=== PATIENT | female | born 1950 | race Caucasian/White ===

== ENCOUNTER → 2018-04-13 | Outpatient (CLI) | payer MEDICARE, OTHER ==
[~2018-04-13] MED LIST: BUSPIRONE HCL5 MG PO; CITALOPRAM HBR20 MG PO; LOPRESSOR50 MG PO; LORAZEPAM0.5 MG PO; PANTOPRAZOLE SO40 MG PO; SPIRIVA18 MCG INH; SYMBICORT 16010.2 GM INH; VENTOLIN HFA18 GM INH
== END ==
LOC: RESP 08:37
PROVIDERS: ATTEND Internal Medicine Critical Care Medicine
DX: R09.02 Hypoxemia (principal); J44.9 Chronic obstructive pulmonary disease, unspecified; R91.1 Solitary pulmonary nodule; J30.9 Allergic rhinitis, unspecified; K21.9 Gastro-esophageal reflux disease without esophagitis; R53.1 Weakness
CPT/HCPCS: 94060; 94727; 94729

== ENCOUNTER 2018-07-06 13:05 | Emergency (ER) | payer MEDICARE, OTHER ==
[~2018-07-06] VITALS: Ht 157.5 cm; Wt 73.5 kg
--- NOTE | 2018-07-06 14:18 | Diagnostic Imaging Report ---
Radiographs of the left hand - 3 views HISTORY: Pain COMPARISON: None available. FINDINGS: Bones: No acute displaced fracture. Osseous alignment is within normal limits. Joints: Mild scattered degenerative change. No osseous erosion. Soft tissues: The soft tissues appear unremarkable. IMPRESSION: Mild scattered degenerative change. No osseous erosion. Signed by: Dr. Leroy Lucio M.D. on 07/06/2018 2:15 PM
[2018-07-06] MEDS ORDERED: CEPHALEXIN500 MG PO (14:51)
== END 2018-07-06 17:10 | disposition home or self-care (01) ==
LOC: FSED 13:05
DX: M79.642 Pain in left hand (principal); L03.012 Cellulitis of left finger; I10 Essential (primary) hypertension; J44.9 Chronic obstructive pulmonary disease, unspecified; E78.5 Hyperlipidemia, unspecified; Z87.891 Personal history of nicotine dependence
CPT/HCPCS: 99283

== ENCOUNTER → 2019-05-24 | Outpatient (CLI) | payer MEDICARE, OTHER ==
[~2019-05-24] MED LIST changes: +ALBUTEROL SULF 0.083% NEB SOLN 3 ML NEB ONE; +CEPHALEXIN500 MG PO
--- NOTE | 2019-06-06 00:49 | Pulmonary Function Test ---
DATE OF STUDY: 05/24/2019 REFERRING PHYSICIAN: SPIROMETRY: Spirometry demonstrates very severe obstruction. FEV1 was 0.56 L or 26% predicted and FVC was 1.78 L or 63% predicted in setting of decreased FEV1/FVC ratio. After bronchodilator administration, there was an intensively significant 12.3% FVC change. LUNG VOLUMES: Lung volumes are measured by nitrogen washout method demonstrate no evidence of restriction with normal total lung capacity of 4.25 L or 92.2% predicted. DIFFUSION: Diffusion capacity was severely decreased at 6.47 mL/mmHg/min or 32.5% predicted. SUMMARY: Very severe obstruction, severe diffusion. This is most often seen in emphysema. Clinical correlation is recommended. MD HENRY Grant/MODL /[id number]
== END ==
LOC: RESP 10:43
PROVIDERS: ATTEND Internal Medicine Critical Care Medicine
DX: R09.02 Hypoxemia (principal); R53.1 Weakness; R91.1 Solitary pulmonary nodule; J44.9 Chronic obstructive pulmonary disease, unspecified; J30.9 Allergic rhinitis, unspecified; K21.9 Gastro-esophageal reflux disease without esophagitis
CPT/HCPCS: 94060; 94640; 94727; 94729